=== PATIENT | female | born 1995 | race Caucasian/White ===

== ENCOUNTER 2016-11-06 10:28 | Emergency (ER) | payer OTHER, MEDICAID ==
[2016-11-06 12:24] LABS: ABSOLUTE NEUTROPHIL COUNT 4.3 K/mm3 (1.8-7.7); BASO % 0.5 % (0.2-1.0); EOS # 0.4 (0.0-0.5); EOS % 4.9 % (0.9-2.9); HEMATOCRIT 41.7 % (37.0-47.0); HEMOGLOBIN 12.8 gm/l (12.0-16.0); IMM NEUT% 0.4 % (0-1); LYMPH # 2.6 (1.0-4.8); LYMPH % 32.7 % (15-45); MEAN CELL VOLUME 83.7 fl (81.0-99.0); MEAN CORPUSCULAR HEMOGLOBIN 25.7 pg (27.0-31.0); MEAN CORPUSCULAR HGB CONC 30.7 g/dl (33.0-37.0); MEAN PLATELET VOLUME 8.5 fl (7.4-10.4); MONO # 0.5 (0.0-0.8); MONO % 6.3 % (4-12); NEUT % 55.2 % (43-75); PLATELET COUNT 256 K/mm3 (130-400); RED CELL DISTRIBUTION WIDTH 16.9 % (11.5-14.5)
[2016-11-06 12:35] LABS: ALB/GLOB RATIO 1.3 (>1.0); ALBUMIN 4.2 gm/dL (3.5-5.7); CALCIUM 9.3 mg/dL (8.6-10.3)
[2016-11-06 12:41] LABS: TROPONIN I < 0.01 ng/ml (0.0-0.06)
[2016-11-06 12:47] LABS: PH,URINE 6.5 (5.0-8.0); SPECIFIC GRAVITY 1.015 (1.001-1.030); URINE BILIRUBIN NEGATIVE (NEGATIVE); URINE BLOOD NEGATIVE (NEGATIVE); URINE GLUCOSE (UA) NEGATIVE (NEGATIVE); URINE LEUKOCYTE ESTERASE TRACE (NEGATIVE); URINE NITRITE NEGATIVE (NEGATIVE); URINE PROTEIN NEGATIVE (NEGATIVE); URINE UROBILINOGEN NORMAL (0-1 mg/dl)
[2016-11-06 12:49] LABS: URINE APPEARANCE HAZY; URINE COLOR YELLOW
[2016-11-06 12:50] LABS: HCG,QUALITATIVE URINE NEGATIVE
[2016-11-06 12:55] LABS: INR 1.77; PARTIAL THROMBOPLASTIN TIME 34.6 SECONDS (24.5-33.0); PROTHROMBIN TIME 19.1 SECONDS (9.3-11.4)
[2016-11-06 13:03] LABS: URINE RBC 0-1 /hpf; URINE WBC NEG /hpf
[2016-11-06 13:04] LABS: URINE BACTERIA RARE
--- NOTE | 2016-11-06 13:22 | RAD ---
Exam: Two-view chest COMPARISON: None INDICATION: Chest and back pain. FINDINGS: PA and lateral views of the chest were obtained. Cardiac silhouette is within normal limits. Lungs are well-inflated. There is no focal airspace disease or pleural effusion. Mild levoconvex curvature of the upper thoracic spine is appreciated measuring roughly 12 degrees with the apex at T3-4. Bones of the chest wall otherwise unremarkable. IMPRESSION: No acute pulmonary process.
[2016-11-06] MEDS ORDERED: KETOROLAC TROMETHAMINE 30 MG/ML 1 ML VIAL ONE (13:43)
== END 2016-11-06 14:15 | disposition home or self-care (01) ==
LOC: ED 10:28
DX: R07.9 Chest pain, unspecified (principal); R06.02 Shortness of breath; Z86.718 Personal history of other venous thrombosis and embolism; Z79.01 Long term (current) use of anticoagulants
CPT/HCPCS: 85379; 81025; 85025; 82553; 80053; 85730; 85610; 84484; 81001; 71020; 99284 ×2; 96374; J1885